=== PATIENT | female | born 1990 | race African-American/Black ===

== ENCOUNTER 2021-03-31 04:56 | Emergency (ER) | payer OTHER, SELFPAY ==
[2021-03-31 05:08] VITALS: BP 144/98; PULSE 84; RESP 18; TEMP 36.3; O2SAT 100
--- NOTE | 2021-03-31 05:41 | ED.FEMALEGU ---
HPI - Female Genitourinary General Chief complaint: Urogenital-Female Stated complaint: std Time Seen by Provider: 03/31/21 05:18 Source: patient and RN notes reviewed Mode of arrival: ambulatory Limitations: no limitations History of Present Illness HPI Narrative: This is a 30 year old female who presents for evaluatoin of possible STD. PAtient states she just found out that her boyfriend cheated. She reports white discharge for the past 2 days. She denies associated odor, pelvic pain, nausea, vomiting, dysuria or fever . Related Data Home Medications Medication Instructions Recorded Confirmed lisinopril 20 mg 03/31/21 metformin mg PO 03/31/21 Allergies Allergy/AdvReac Type Severity Reaction Status Date / Time No Known Allergies Allergy Unknown Verified 03/31/21 05:47 Review of Systems Review of Systems: All systems reviewed & are unremarkable except as noted in HPI and below PMFSH Past Medical History Medical History (Updated 03/31/21 @ 06:41 by Talisha Gutierrez MD) Hypertension Surgical History Surgical History (Updated 03/31/21 @ 05:43 by Talisha Gutierrez MD) H/O tubal ligation Social History Social History (Updated 03/31/21 @ 05:43 by Talisha Gutierrez MD) Smoking status: Never smoker Exam Const: General: no acute distress and alert Orientation/consciousness: patient oriented x3 Eyes: EOM: EOMs intact bilaterally Resp: Effort & Inspection: normal respiratory effort and no retractions Auscultation: clear to auscultation bilaterally Cardio: Rate: regular rate Rhythm: regular rhythm Heart sounds: no murmurs GI: GI Palp: Yes Soft to palpation, No Tenderness to palpation present (GI) and No Guarding due to palpation present (GI) Auscultation: normal bowel sounds : Speculum Exam - Cervix: normal appearance of the cervix and Cervical os closed Other: no CMT, brown discharge Neuro: General: patient oriented x3, moves all extremities and CN's II-XI intact bilaterally Course Reevaluation(s) Reevaluation #1: I have discussed with patient that trichomonas and UA and test are negative. I did not see signs of needed antibiotics at this time. 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 Labs: Lab Results 03/31/21 03/31/21 03/31/21 Range/Units 05:53 05:53 05:53 Urine Color Straw (Yellow) Urine Appearance Clear (Clear) Urine pH 6.0 (5.0-9.0) Ur Specific [place] 1.011 (1.001-1.035) Urine Protein Negative (Negative) mg/dL Urine Glucose (UA) Negative (Negative) mg/dL Urine Ketones Negative (Negative) mg/dL Ur Blood (Man) Negative (Negative) Urine Nitrate Negative (Negative) Urine Bilirubin Negative (Negative) Urine Urobilinogen Negative (<2.0) mg/dL Leukocyte Esterase Rfl Negative (Negative) TRICE/UL C.trachomatis RNA (TMA) Pending N.gonorrhoeae RNA (TMA) Pending Trichomonas Direct ID Negative (Negative) UCG Bedside Result Negative Reference Range: Negative Discharge Plan Discharge Clinical Impression: Screen for STD (sexually transmitted disease) Patient Disposition: Home, Self-Care Condition: Stable Instructions: Antibiotic Form, Safe Sex Practices (ED) Additional Instructions: IT is unclear if you have STD at this time. your results will retu
[2021-03-31 06:01] LABS: Add Urine Microscopic? NO; Appearance Urine Clear (Clear); Bilirubin Urine Negative (Negative); Blood Urine Negative (Negative); Color Urine Straw (Yellow); Glucose Urine UA Negative (Negative); Ketones Urine Negative (Negative); Leukocyte Esterase Ur Negative LEU/UL (Negative); Nitrate Urine Negative (Negative); Protein Urine Negative (Negative); Specific Grav Ur 1.011 (1.001-1.035); Urobilinogen Urine Negative mg/dL (<2.0)
== END 2021-03-31 07:03 | disposition home or self-care (01) ==
PROVIDERS: Emergency Provider General Practice; PCP Nurse Practitioner Family
DX: N89.8 Other specified noninflammatory disorders of vagina (principal); I10 Essential (primary) hypertension
CPT/HCPCS: 81003; 81025; 87070; 87077; 87491; 87591; 87808; 99284

== ENCOUNTER → 2023-12-11 10:25 | Outpatient (CLI) | payer OTHER, SELFPAY ==
--- NOTE | ~2023-12-11 | XR_ITS ---
XR hip LT min 2V 12/11/2023 10:43 Indication: Left hip pain Procedure: 3 views left Comparison: No prior studies for comparison. Findings: No fracture, subluxation or dislocation. Surrounding osseous structures are unremarkable. N o soft tissue abnormality. No foreign bodies. Impression: 1: No significant bone or joint abnormality. Reviewed, dictated and finalized at location B. Impression: 1: No significant bone or joint abnormality.
== END ==
PROVIDERS: PCP Nurse Practitioner Family; Visit Provider Nurse Practitioner Family
DX: M25.552 Pain in left hip (principal)
CPT/HCPCS: 73502

== ENCOUNTER 2024-04-12 11:22 | Emergency (ER) | payer OTHER, SELFPAY ==
--- NOTE | 2024-04-12 11:25 | ED.HA ---
HPI - Headache General Chief Complaint: Headache Stated Complaint: migraine Time Seen by Provider: 04/12/24 11:24 Source: patient Mode of arrival: ambulatory Limitations: no limitations History of Present Illness HPI Narrative: Narciso is a 33-year-old female with history of migraines presents to the clinic today with complaints of a headache for. She rates the headache as 7/10 and describes it as dull and pressure-like across her forehead and bilateral temples. She also complains of some visual blurriness in the morning and photosensitivity. She reports increased stress lately and went to the ER a few days ago and received a migraine cocktail with improvement, however, her symptoms returned shortly afterwards. She also presented to the urgent care 2 days ago and received a Toradol shot with improvement of her symptoms, however, they returned again shortly afterwards. She denies any associated nausea/vomiting, dizziness, or fever/chills. MD elicited complaint: headache and migraine Related Data Home Medications Medication Instructions Recorded Confirmed lisinopril 20 mg PO DAILY 03/31/21 04/12/24 metformin 500 mg tablet,extended 500 mg PO DAILY 03/31/21 04/12/24 release 24 hr fluticasone propionate 50 2 spray intranasal DAILY 04/12/24 04/12/24 mcg/actuation nasal spray,suspension fremanezumab-vfrm 225 mg/1.5 mL 225 mg subcut MONTHLY 04/12/24 04/12/24 subcutaneous syringe (Ajovy Syringe) propranolol 20 mg tablet 20 mg PO DAILY 04/12/24 04/12/24 rizatriptan 10 mg tablet 10 mg PO PRN PRN Migraine Headache 04/12/24 04/12/24 zolpidem 10 mg tablet 10 mg PO HS PRN Sleep 04/12/24 04/12/24 Allergies Allergy/AdvReac Type Severity Reaction Status Date / Time No Known Allergies Allergy Unknown Verified 04/12/24 11:35 Review of Systems Review of Systems: Pertinent positives per HPI. Patient denies any fever, chills, rash, dizziness, cough, runny nose, sore throat, shortness of breath, chest pain, palpitations, nausea, vomiting, diarrhea, constipation, abdominal pain, or any urinary issues. PMFSH Past Medical History Medical History Hypertension Surgical History Surgical History H/O tubal ligation Social History Social History Smoking status: Never smoker Comments At the time of my signature, I reviewed and agree with the nursing past medical, surgical, social, and family history. There is no relevant family history pertinent to the patient complaint. Exam Narrative: General: Well-developed, well nourished, in no apparent distress Head: Normocephalic, atraumatic Eyes: Pupils equally round, EOM intact, sclera and conjunctive clear, no discharge, lids normal Neck: Supple, trachea midline Musculoskeletal: No deformity, non-tender to palpation, grossly normal range of motion, muscle strength strong and equal, no edema, no cyanosis, normal gait and station Neuro: Alert and oriented x4 with normal speech, no focal deficits, sensation intact bilaterally Course Course Emergency Course: Portions of this record may have been created with voice recognition software. Level of Care: Express Care Visit Vital Signs Vital signs: Vital signs reviewed MDM - Headache MDM Narrative Medical decision making narrative: At the time of visit patient is resting comfortably on the exam table. Patient appears to be nontoxic. Plan: I suspect the patient has a tension carlson. I will send a prescription for naproxen. Prescription reviewed with patient. Advised to follow-up with her neurologist. Supportive measures were discussed with the patient and they voiced understanding discharge instructions and agrees to treatment plan. Return precautions reviewed Differential Diagnosis Differential diagnosis: Likely migraine, tension headache
[2024-04-12 11:31] VITALS: BP 111/74; PULSE 80; RESP 16; TEMP 36.2; O2SAT 99
== END 2024-04-12 12:00 | disposition home or self-care (01) ==
PROVIDERS: Emergency Provider Nurse Practitioner Family; PCP Nurse Practitioner Family
DX: G44.209 Tension-type headache, unspecified, not intractable (principal); I10 Essential (primary) hypertension
CPT/HCPCS: 99213; G0463